=== PATIENT | male | born 2000 | race Caucasian/White ===

== ENCOUNTER 2024-08-13 08:52 | Outpatient (CLI) | payer OTHER, SELFPAY ==
--- NOTE | ~2024-08-13 | US_ITS ---
Limited Abdominal Sonogram: Real-time sonographic imaging of the right upper quadrant was performed. Clinical History: Hepatic steatosis Findings: The liver appears echogenic with no evidence of mass lesion or bile duct dilatation. Main portal vein demonstrates normal direction of flow. The gallbladder is partially distended, and appear s normal with no evidence of gallstone or wall thickening. The common bile duct measures 2 mm. The v isualized pancreas, aorta, and IVC are unremarkable. Impression: Diffuse fatty infiltration of the liver. Reviewed, dictated and finalized at location M. Impression: Diffuse fatty infiltration of the liver.
--- OUTSIDE RECORDS SUMMARY | 2024-08-13 09:40 | XMS_ITS | Clinical Summary ---
Author Organization [facility] [employer] Address [address] [place] [address] Care Team Providers Care Costume Design Teacher Name Role Phone Dory Arreaga MD Primary Care Provider [phone] [facility] [employer],non-owned Affiliates and Associated Physician Practices is amultiple site organization consisting of ambulatory clinics and hospital sitesin [place], [place], [place] and [place]. This disclosure is being madepursuant to the Care Everywhere program and may not contain all information available regarding this patient. Last updated [email or web address] Allergies No known active allergies Medications * Be aware that medications may not be up to date on this document. Alwaysverify current medications with the patient. Medication Sig Dispensed Refills Start Date End Date Status FLUoxetine (PROZAC) 40 MG capsule Take 40 mg by mouth once daily 09/24/2021 Active amoxicillin (Amoxil) 875 MG tablet 04/22/2022 Active Active Problems Problem Noted Date Diagnosed Date Pain in joint of right shoulder 05/27/2020 [place]-Schlatter's disease 11/27/2013 Post-operative pain Cervical radiculitis Family History Medical History Relation Name Comments Cancer - Colon Maternal Grandfather Hypertension Maternal Grandfather Cancer - Breast Maternal Grandmother Diabetes - Type 1 Maternal Grandmother Hypertension Maternal Grandmother Depression Mother Diabetes - Type 1 Mother Hypertension Mother Diabetes - Type 1 Paternal Grandfather Hypertension Paternal Grandfather Hypertension Paternal Grandmother Relation Name Status Comments Father Alive Maternal Grandfather Maternal Grandmother Mother Alive Paternal Grandfather Paternal Grandmother Social History Tobacco Use Types Packs/Day Years Used Date Smoking Tobacco: Never Smokeless Tobacco: Never Alcohol Use Standard Drinks/Week Comments Yes 2 (1 standard drink = 0.6 oz pur e alcohol) 1-2 beers weekly AUDIT-C Answer Date Recorded Q1: How often do you have a drink containing alc ohol? Monthly or less 02/16/2022 Q2: How many drinks containi ng alcohol do you have on a typical day when you are drinking? 1 or 2 02/16/2022 Q3: How often do you have si x or more drinks on one occasion? Never 02/16/2022 Sex and Gender Information Value Date Recorded Sex Assigned at Not on file Gender Identity Not on file Sexual Orientation Not on file Last Filed Vital Signs Vital Sign Reading Time Taken Comments Blood Pressure 165/108 02/16/2022 2:15 PM CDT Pulse 126 02/16/2022 2:15 PM CDT Temperature 37.1 C (98.8 F) 02/16/2022 1:00 PM CDT Respiratory Rate 20 02/16/2022 2:15 PM CDT Oxygen Saturation 95% 02/16/2022 2:15 PM CDT Inhaled Oxygen Concentration - - Weight 75.6 kg (166 lb 9.6 oz) 02/16/2022 6:35 A M CDT Height 167.6 cm (5' 6 ) 02/16/2022 6:35 AM CDT Body Mass Index 26.89 02/16/2022 6:35 AM CDT Plan of Treatment Health Maintenance Due Date Last Done Comments HIV SCREENING 10/29/2015 HPV VACCINE (1 - Male 3-dose series) 10/29/2015 MENINGOCOCCAL (Group B) VACC INE SHARED DECISION-MAKING (1 of 2 - Standard) 2016 HEPATITIS C SCREENING 10/24/2018 DTAP/TDAP/TD VACCINES (1 - Tdap) 10/29/2019 HEPATITIS B VACCINE (1 of 3 - 19+ 3-dose series) 10/29/2019 COVID-19 VACCINE (1 - 2023-2 5 season) 2024 INFLUENZA VACCINE (#1) 2024 02/25/2022 DEPRESSION SCREENING 05/16/2024 ZOSTER VACCINE (1 of 2) 2050 HIB VACCINE Aged Out No longer eligi ble based on patient's age to complete this topic MENINGOCOCCAL GROUPS A/C/Y/W VACCINE Aged Out No longer eligible b ased on patient's age to complete this topic PNEUMOCOCCAL VACCINE Aged Out No long er eligible based on patient's age to complete this topic Medical Devices Implanted Type Area Comparative [employer] Professor Device Identifier Shelf Expiration Date Model / Serial / Lot Amite Sut Grbaileyon Proknot Bcrl Rapide Implanted:Qty: 5 on 07/24/2020 by Scott Mccormack MD at [facility] Right: Shoulder [employer] 05/15/2023 [id number] / / [id number] Disc Intvrtb 16mm 6mm Pstg Lp Cspn Ti Implanted:Qty: 1 on 02/16/2022 by Pedro Powell MD at [facility] N/A: Spine Cervical [employer] 03/04/2029 [id number] / / [id number] Advance Directives * Full Code (Latest Code Status on File) Date Activated Date Inactivated Comments 02/16/2022 1:03 PM 02/16/2022 4:46 PM Care Teams Costume Design Teacher Relationship Specialty Start Date End Date Dory Arreaga MD [address] [place] [address] PCP - General Pediatrics 08/19/12
== END 2024-08-13 08:53 | disposition home or self-care (01) ==
LOC: ANHIMG 09:03
PROVIDERS: PCP Internal Medicine; Visit Provider Internal Medicine
DX: K76.0 Fatty (change of) liver, not elsewhere classified (principal)
CPT/HCPCS: 76705